=== PATIENT | male | born 1960 | race Caucasian/White ===

== ENCOUNTER 2019-04-23 20:09 | Emergency (ER) | payer SELFPAY ==
[2019-04-23 20:41] LABS: ABSOLUTE NEUTROPHIL COUNT 3.42; BASO % 0.7 % (0-6); EOS % 1.5 % (0-6); GRAN % 63.5 % (47-80); HEMOGLOBIN 15.8 gm/dl (14.0-18.0); LYMPH % 26.7 % (16-45); MEAN CELL VOLUME 82.1 fl (81-97); MEAN CORPUSCULAR HEMOGLOBIN 30.2 pg (27-33); MEAN CORPUSCULAR HGB CONC 36.7 g/dl (32-36); MEAN PLATELET VOLUME 11.3 fl (7.4-10.4); MONO % 7.6 % (0-9); PLATELET COUNT 178 K/uL (130-400); RED BLOOD COUNT 5.24 M/uL (4.40-5.70); RED CELL DISTRIBUTION WIDTH 12.9 % (11.5-14.5); WHITE BLOOD COUNT W/O DIFF 5.4 K/uL (4.2-12.2)
[2019-04-23 20:52] LABS: BLOOD UREA NITROGEN 10 mg/dL (6-20); CREATININE 0.6 mg/dL (0.7-1.2); EST GLOMERULAR FILTRATION RATE > 60 mL/min
[2019-04-23 20:53] LABS: LIPASE 65 U/L (13-60)
[2019-04-23] MEDS ORDERED: 0.9 % SODIUM CHLORIDE 1,000 ML BAG IV ONE (20:53)
--- NOTE | 2019-04-23 20:53 | Emergency Department Record ---
History of Present Illness - General Chief Complaint: Hypertension Stated Complaint: ELEVATED BLOOD PRESSURE,SWELLING LT SIDE PAIN Time Seen by Provider: 04/23/19 20:26 Source: Patient, Family Mode of Arrival: Ambulatory Limitations: No limitations - History of Present Illness Initial Comments: 59 yo male presents after several years since he saw a PCP. He has several concerns today. He is a diabetic and has a history of hepatitis C. He does not check his blood sugars with any frequency. He states he was treated for hepatitis C. He reports several concerns for several months. He has had a left sided left upper quadrant pain for several months. The pain radiates up and down. The pain is constant. He states the skin over the area is very sensitive. He states it feels like having a constant sunburn. There has not been in rash in the area of the pain. He has chronic pain in both the feet as well that is worsening but long standing. He states he has neuropathy. He was told he had an enlarged spleen several years ago by his GI doctor at the time. In January he did have a fall hitting his head and the back of his shoulder. He had an LOC. He has not had any symptoms since then such as headache, dizziness, nausea, off balance. He does have an appointment next week with a new PCP. MD Complaint: Other Onset/Timin -: Month(s) Timing: Unsure History of Trauma: Yes (January 2019) Improves With: Other Worsens With: Nothing Associated Symptoms: Chest pain - Related Data Home Medications Medication Instructions Recorded Confirmed Last Taken Insulin Glargine,Hum.[email or web address].anlog See Protocol SC ASDIR 04/23/19 04/23/19 Unknown [Lantus] Allergies Allergy/AdvReac Type Severity Reaction Status Date / Time No Known Drug Allergies Allergy Verified 04/23/19 21:05 Travel Screening - Travel/Exposure Within Last 30 Days Have you traveled within the last 30 days?: No - Travel/Exposure Within Last Year Have you traveled outside the [place] in the last year?: No - Additonal Travel Details Have you been exposed to anyone with a communicable illness?: No - Travel Symptoms Symptom Screening: Joint & Muscle Aches Review of Systems Constitutional: Denies: Chills, Fever, Malaise, Night sweats, Weakness Eyes: Denies: Eye discharge, Eye pain, Photophobia, Vision change ENT: Denies: Congestion, Throat pain Respiratory: Denies: Cough, Dyspnea, Hemoptysis, Stridor, Wheezes Cardiovascular: Denies: Chest pain, Edema, Palpitations, Syncope Endocrine: Denies: Fatigue, Polydipsia, Polyuria Gastrointestinal: Reports: Abdominal pain. Denies: Constipation, Diarrhea, Hematemesis, Hematochezia, Melena, Nausea, Vomiting Genitourinary: Denies: Dysuria, Frequency, Hematuria Musculoskeletal: Reports: Arthralgia, Back pain, Myalgia. Denies: Neck pain Skin: Denies: Bruising, Change in color, Rash Neurological: Reports: Tingling (both feet, chronic). Denies: Headache, Numbness, Tremors, Vertigo, Weakness Psychiatric: Denies: Anxiety Hematological/Lymphatic: Denies: Easy bleeding, Easy bruising Past Medical History - SOCIAL HISTORY Smoking Status: Never smoker Alcohol Use: Occasional Drug Use: None - RESPIRATORY Hx Respiratory Disorders: Yes Hx Pneumonia: Yes - CARDIOVASCULAR Hx Hypertension: Yes - NEURO Hx Neuropathy: Yes - GI Hx GI Disorders: Yes Hx Liver Disease: Yes (liver cancer) Comment:: hep c - ENDOCRINE Hx Diabetes: Yes - MUSCULOSKELETAL Hx Arthritis: Yes - HEMATOLOGY/ONCOLOGY Hx Cancer: Yes Hx Chemotherapy: Yes Family Medical History Any Significant Family History?: No Physical Exam - General General Appearance: Alert, Oriented x3, Cooperative, No acute distress Limitations: No limitations - Head Head exam: Atraumatic, Normocephalic, Normal inspection - Eye Eye exam: Normal appearance, PERRL. negative: Conjunctival injection, Scleral icterus (clear white sclera) Pupils: negative: Unequal - ENT ENT exam: Normal exam, Mucous membranes moist, Normal orophraynx. negative: Mucous membranes dry Ear exam: Normal external inspection Nasal Exam: Normal inspection Mouth exam: Normal external inspection Teeth exam: Normal inspection Throat exam: Normal inspection - Neck Neck exam: Normal inspection. negative: Lymphadenopathy - Respiratory Respiratory exam: Normal lung sounds bilaterally. negative: Accessory muscle use, Chest wall tenderness, Decreased breath sounds, Prolonged expiratory, Respiratory distress, Rhonchi, Stridor, Wheezes - Cardiovascular Cardiovascular Exam: Regular rate, Normal rhythm, Normal heart sounds Peripheral Pulses: 2+: Radial (R), Radial (L) - GI/Abdominal GI/Abdominal exam: Soft, Tenderness (tender left upper quadrant, no palpable spleen or liver edge, soft otherwise). negative: Guarding, Hypoactive bowel sounds - Rectal Rectal exam: Deferred - exam: Deferred - Extremities Extremities exam: Normal inspection, Full ROM, Normal capillary refill. negative: Calf tenderness, Pedal edema, Tenderness - Back Back exam: Reports: CVA tenderness (L), Full ROM, Tenderness (left side). Denies: CVA tenderness (R) - Neurological Neurological exam: Alert, Normal gait, Oriented X3 - Psychiatric Psychiatric exam: Normal affect, Normal mood. negative: Agitated, Anxious - Skin Skin exam: Dry, Intact, Normal color, Warm, Other (Feet are warm, intact pulses, no skin breakdown). negative: Cyanosis, Diaphoretic, Erythema, Mottled Course Vital Signs 04/23/19 20:17 Temperature 97.8 F Pulse Rate [ 112 H Pulse Ox Probe] Respiratory 20 Rate Blood Pressure 130/92 [Left Arm] Pulse Ox 95 - Reevaluation(s) Reevaluation #1: 04/23/19 22:09 The labs were reviewed The CBC is normal The CMP was normal except for the glucose is elevated at 498 The HCO3 is normal. The AG is normal as well. Normal renal function. 04/23/19 22:14 The Venous pH is 7.37 (normal) The Acetone is negative (normal) The A1C is 11.[address] of the abdomen and pelvis was reviewed. The liver appears enlarged and lobulated possibly consistent with cirrhosis, the spleen is borderline to mildly enlarged, no ascites, inguinal hernias noted. 04/23/19 22:41 We discussed the lab results at length. We discussed the need to have the close follow up with his new PCP and half-way monitoring of the glucose. No current signs of DKA or other complications. His liver seems stable with normal LFT's. 04/23/19 22:43 Repeat glucose is 311. 04/23/19 He has enough Lantus until next week but an Rx was provided He will fill the Rx for strips so he can start titrating his lantus up as well He will increase to 40 units from 30 Medical Decision Making - Lab Data Result diagrams: 04/23/19 20:31 04/23/19 20:31 Lab Results 04/23/19 Range/Units 20:31 WBC 5.4 (4.2-12.2) K/uL RBC 5.24 (4.40-5.70) M/uL Hgb 15.8 (14.0-18.0) gm/dl Hct 43.0 (42.0-52.0) % MCV 82.1 (81-97) fl MCH 30.2 (27-33) pg MCHC 36.7 H (32-36) g/dl RDW 12.9 (11.5-14.5) % Plt Count 178 (130-400) K/uL MPV 11.3 H (7.4-10.4) fl Gran % 63.5 (47-80) % Lymphocytes % 26.7 (16-45) % Monocytes % 7.6 (0-9) % Eosinophils % 1.5 (0-6) % Basophils % 0.7 (0-6) % Absolute Neutrophils 3.42 Disposition Disposition: Discharge Clinical Impression: Hyperglycemia, Neuropathy Disposition: Home, Self-Care Condition: (1) Good Instructions: Diabetic Hyperglycemia (ED) Additional Instructions: Follow up as scheduled with your new doctor for your first appointment Review this ER visit and the tests performed with your family doctor Return to the ER for a recheck if worse, any new concerns or questions Take the prescriptions provided as directed Forms: Patient Portal Access Time of Disposition: 23:07 Quality - Quality Measures Quality Measures: N/A - Blood Pressure Screening Does Patient Have Any of the Following: No Blood Pressure Classification: Hypertensive Reading Systolic Measurement: 118 Diastolic Measurement: 95 Screening for High Blood Pressure: < Pre-Hypertensive BP, F/U Documented > [G8950] Pre-Hypertensive Follow-up Interventions: Referral to alternative/primary care provider.
[2019-04-23 20:58] LABS: ALBUMIN 4.7 g/dL (4.0-5.0); ALKALINE PHOSPHATASE 60 U/L (40-129); ALT/SGPT 31 U/L (<41); AST/SGOT 22 U/L (10.0-50.0)
[2019-04-23 21:08] LABS: GLUCOSE,RANDOM 489 mg/dL (74-109)
[2019-04-23] MEDS ORDERED: 0.9 % SODIUM CHLORIDE 1000ML 1,000 ML IV ONE ×2 (21:08→22:16)
[2019-04-23] MEDS ORDERED: HUMULIN R 100 UNIT/ML VIAL SQ ONE (21:29)
[2019-04-23 21:31] LABS: URINE APPEARANCE CLEAR; URINE BILIRUBIN NEGATIVE (NEGATIVE); URINE BLOOD NEGATIVE (NEGATIVE); URINE COLOR YELLOW; URINE KETONE NEGATIVE (NEGATIVE); URINE LEUKOCYTE ESTERASE NEGATIVE (NEGATIVE); URINE NITRITE NEGATIVE (NEGATIVE); URINE PROTEIN NEGATIVE (NEGATIVE); URINE UROBILINOGEN 0.2 E.U./dL (0.20 - 1.00)
[2019-04-23 21:33] LABS: URINE GLUCOSE (UA) >=1000 mg/dL (NEGATIVE)
[2019-04-23 21:34] LABS: ACETONE,SERUM NEGATIVE (NEGATIVE)
--- NOTE | 2019-04-25 09:33 | CT SCAN REPORT ---
EXAM: CT OF THE ABDOMEN AND PELVIS HISTORY: FELL DOWN STAIRS, GENERALIZED PAIN. TECHNIQUE: CT of the abdomen and pelvis was performed following intravenous contrast administration. Comparison: None. FINDINGS: The lung bases are unremarkable. The liver has a diffusely lobulated appearance. The spleen is borderline enlarged. Findings suggest cirrhosis. No focal hepatic mass identified. No pancreatic mass or inflammatory change. The bile ducts are not dilated. There are no calcified gallstones. No adrenal mass. There is bilateral renal function with no renal mass or hydronephrosis. There is no aortic aneurysm. No periaortic mass or adenopathy identified. There are no dilated bowel loops. There is no pelvic mass, abscess or adenopathy. No free air or free fluid identified. There are bilateral fat containing inguinal hernias. Arthritic changes are present in the sacroiliac joints and lower lumbar spine. IMPRESSION: 1. THE LIVER HAS A DIFFUSELY LOBULATED APPEARANCE. THIS PATTERN SUGGESTS CIRRHOSIS. PLEASE CORRELATE CLINICALLY. THE SPLEEN IS BORDERLINE TO MILDLY ENLARGED. 2. BILATERAL FAT CONTAINING INGUINAL HERNIA. 3. NO ACUTE ABDOMINAL OR PELVIC PROCESS IDENTIFIED. JOB NUMBER: [id number] [facility]
== END 2019-04-23 23:25 | disposition home or self-care (01) ==
LOC: ER 20:09
DX: E11.65 Type 2 diabetes mellitus with hyperglycemia (principal); E11.40 Type 2 diabetes mellitus with diabetic neuropathy, unspecified; R10.12 Left upper quadrant pain; R07.9 Chest pain, unspecified; I10 Essential (primary) hypertension; Z79.4 Long term (current) use of insulin; Z86.19 Personal history of other infectious and parasitic diseases
CPT/HCPCS: 99284 ×2; 96372; 82800; 83690; 85025; 80053; 36416; 82009; 83036; 82948; 81003; 74177; Q9967; J7030

== ENCOUNTER 2019-06-08 09:39 | Observation (INO) | payer MEDICAID ==
[2019-06-08] MEDS ORDERED: ACETAMINOPHEN 1,000 MG/100 ML BTL IVPB ONE (10:07)
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
[2019-06-08 10:20] LABS: ABSOLUTE NEUTROPHIL COUNT 3.37; BASO % 0.4 % (0-6); EOS % 1.8 % (0-6); GRAN % 66.2 % (47-80); HEMATOCRIT 41.9 % (42.0-52.0); HEMOGLOBIN 14.5 gm/dl (14.0-18.0); LYMPH % 21.6 % (16-45); MEAN CELL VOLUME 86.2 fl (81-97); MEAN CORPUSCULAR HEMOGLOBIN 29.8 pg (27-33); MEAN CORPUSCULAR HGB CONC 34.6 g/dl (32-36); MEAN PLATELET VOLUME 11.5 fl (7.4-10.4); PLATELET COUNT 158 K/uL (130-400); RED BLOOD COUNT 4.86 M/uL (4.40-5.70); RED CELL DISTRIBUTION WIDTH 13.4 % (11.5-14.5); URINE APPEARANCE CLEAR; URINE BILIRUBIN NEGATIVE (NEGATIVE); URINE BLOOD NEGATIVE (NEGATIVE); URINE COLOR YELLOW; URINE GLUCOSE (UA) NEGATIVE (NEGATIVE); URINE KETONE NEGATIVE (NEGATIVE); URINE LEUKOCYTE ESTERASE NEGATIVE (NEGATIVE); URINE NITRITE POSITIVE (NEGATIVE); URINE PROTEIN NEGATIVE (NEGATIVE); WHITE BLOOD COUNT W/O DIFF 5.1 K/uL (4.2-12.2)
[2019-06-08 10:29] LABS: BLOOD UREA NITROGEN 13 mg/dL (6-20); CREATININE 0.6 mg/dL (0.7-1.2); EST GLOMERULAR FILTRATION RATE > 60 mL/min
[2019-06-08 10:31] LABS: PARTIAL THROMBOPLASTIN TIME 28.5 SECONDS (24.5-39.1); PROTHROMBIN TIME (PATIENT) 10.7 SECONDS (9.5-12.1)
[2019-06-08 10:32] LABS: GLUCOSE,RANDOM 151 mg/dL (74-109)
[2019-06-08 10:34] LABS: ALBUMIN 4.4 g/dL (4.0-5.0); ALKALINE PHOSPHATASE 46 U/L (40-129); ALT/SGPT 17 U/L (<41); AST/SGOT 25 U/L (10.0-50.0)
[2019-06-08 10:35] LABS: BILIRUBIN,DIRECT < 0.2 mg/dL (0-0.3); C-REACTIVE PROTEIN 0.07 mg/dL (<0.5)
[2019-06-08 10:44] LABS: URINE BACTERIA NONE SEEN; URINE EPITHELIAL CELLS 0 - 2 (FEW); URINE RBC NONE SEEN (NONE SEEN); URINE WBC NONE SEEN (0-2/hpf)
--- NOTE | 2019-06-08 10:55 | RADIOLOGY REPORT ---
EXAMINATION: Two View Chest Radiographs EXAM DATE: 06/08/2019 10:30 AM TECHNIQUE: Frontal and lateral views INDICATION: R upper back rib pain COMPARISON: None ENCOUNTER: Not applicable FINDINGS: Cardiac size is normal. Bibasilar atelectasis or infiltrates and small pleural effusions. IMPRESSION: Bibasilar atelectasis or infiltrates and small pleural effusions. Dictated by: Razia Quinonez MD on 06/08/2019 10:49 AM. .
[2019-06-08] MEDS ORDERED: KETOROLAC 30 MG/ML VIAL IVP ONE (11:01)
[2019-06-08] MEDS ORDERED: FUROSEMIDE IV 40MG/4ML VIAL IVP ONE (11:33)
[2019-06-08] MEDS ORDERED: ONDANSETRON HCL IV 4 MG/2 ML VIAL IVP ONE (11:36)
[2019-06-08] MEDS ORDERED: HYDROMORPHONE HCL 2 MG/ML VIAL IVP ONE (11:36)
--- NOTE | 2019-06-08 12:27 | History & Physical ---
History of Present Illness - Date of Service Date of Service for History & Physical: 06/09/19 - History of Present Illness History of Present Illness: Mr. Sandoval is a 59 y/o male with history of diabetes II who presents with bilateral lower extremity swelling and pain since February of this year. As per ED report the patient has been using Lyrica as prescribed by his primary doctor and icing his legs to helps with pain control. He denies chest pain, shortness of breath, or palpitations. He has no history of DC however EKG today shows LBBB and chest xray notes bilateral atelectasis and small pleural effusions. He does have a history of chronic hepatitis C which was treated about 6 years ago and he says that his last viral load 4 years ago was low. The patient will be admitted to the general medical floor to be diuresed for lower ext swelling and 2D echo. PCP: Dr. Eric Snell Travel Screening - Travel/Exposure Within Last 30 Days Have you traveled within the last 30 days?: No Review of Systems Constitutional: Denies: Chills, Fever Eyes: Denies: Eye discharge ENT: Denies: Congestion Respiratory: Denies: Cough, Dyspnea Cardiovascular: Denies: Chest pain Endocrine: Reports: Fatigue Gastrointestinal: Denies: Nausea Genitourinary: Denies: Dysuria, Hematuria Musculoskeletal: Reports: Arthralgia Skin: Reports: Change in color. Denies: Bruising Neurological: Denies: Abnormal gait Past Medical History - SOCIAL HISTORY Smoking Status: Never smoker Alcohol Use: None Drug Use: None - RESPIRATORY Hx Respiratory Disorders: Yes Hx Pneumonia: Yes - CARDIOVASCULAR Hx Cardio Disorders: Yes Hx Hypertension: Yes - NEURO Hx Neuro Disorders: Yes Hx Neuropathy: Yes - GI Hx GI Disorders: Yes Hx Liver Disease: Yes (liver cancer) Comment:: hep c - Hx Genitourinary Disorders: No - ENDOCRINE Hx Endocrine Disorders: Yes Hx Diabetes: Yes - MUSCULOSKELETAL Hx Musculoskeletal Disorders: Yes Hx Arthritis: Yes Hx Back Injury: Yes - PSYCH Hx Psych Problems: No - HEMATOLOGY/ONCOLOGY Hx Hematology/Oncology Disorders: Yes Hx Cancer: Yes Hx Chemotherapy: Yes Family Medical History Any Significant Family History?: No H&P Meds/Allergies - Allergies Allergies: Allergies Allergy/AdvReac Type Severity Reaction Status Date / Time No Known Drug Allergies Allergy Verified 06/08/19 09:49 - Home Medications Home Medications Medication Instructions Recorded Confirmed Last Taken Metformin HCl 500 mg PO BID 06/08/19 06/08/19 Unknown Pioglitazone HCl 30 mg PO DAILY 06/08/19 06/08/19 Unknown Pregabalin 100 mg PO TID 06/08/19 06/08/19 Unknown Trazodone HCl 50 mg PO QHS 06/08/19 06/08/19 Unknown Physical Exam - Vital Signs Vital Signs: Vital Signs - Last 24 Hrs Temp Pulse Pulse Resp BP BP BP 06/08/19 11:42 107 H 18 137/93 06/08/19 10:28 108 H 18 131/88 06/08/19 09:42 97.8 F 121 H 18 146/108 Pulse Ox 06/08/19 11:42 97 06/08/19 10:28 98 06/08/19 09:42 98 - General General Appearance: Alert, Oriented x3, Cooperative, No acute distress Limitations: No limitations - Head Head exam: Atraumatic, Normocephalic - Eye Eye exam: Normal appearance, PERRL - ENT Throat exam: Normal inspection. negative: Tonsillar erythema, Tonsillar exudate - Neck Neck exam: Normal inspection, Full ROM. negative: Tenderness - Respiratory Respiratory exam: Normal lung sounds bilaterally. negative: Respiratory distress - Cardiovascular Cardiovascular Exam: Regular rate, Normal rhythm, Normal heart sounds, Tachycardia Peripheral Pulses: 2+: Dorsalis Pedis (R), Dorsalis Pedis (L), 3+: Radial (R), Radial (L) - GI/Abdominal GI/Abdominal exam: Soft, Normal bowel sounds, Distended. negative: Tenderness - Extremities Extremities exam: Normal capillary refill, Pedal edema (trace bilaterally. ), Tenderness (The lower legs at the ankles and feet are very tender to palpation with mild edema. There are decreased DP and PT pulses but the feet are VERY cold due to the patient icing them due to the pain.), Other (After warming the feet up the R DP pulse was 1+ and the L trace. I cannot feel the PT pulses.). negative: Normal inspection, Full ROM - Neurological Neurological exam: Alert, Normal gait. negative: Abnormal gait, Motor sensory deficit Results - Labs Result Diagrams: 06/08/19 10:05 06/09/19 07:18 Labs Last 24 Hours: Laboratory Results - last 24 hr 06/08/19 06/08/19 06/08/19 10:05 10:05 10:05 WBC 5.1 RBC 4.86 Hgb 14.5 Hct 41.9 L MCV 86.2 MCH 29.8 MCHC 34.6 RDW 13.4 Plt Count 158 MPV 11.5 H Gran % 66.2 Lymphocytes % 21.6 Monocytes % 10.0 H Eosinophils % 1.8 Basophils % 0.4 Absolute Neutrophils 3.37 PT 10.7 INR 1.0 APTT 28.5 Sodium Potassium Chloride Carbon Dioxide Anion Gap BUN Creatinine Estimated GFR Random Glucose Calcium Total Bilirubin Direct Bilirubin AST ALT Alkaline Phosphatase Troponin T C-Reactive Protein NT-Pro-B Natriuret Pep Total Protein Albumin TSH Urine Color Yellow Urine Appearance Clear Urine pH 6.0 Ur Specific Hamilton 1.025 Urine Protein Negative Urine Glucose (UA) Negative Urine Ketones Negative Urine Blood Negative Urine Nitrite Positive H Urine Bilirubin Negative Urine Urobilinogen 1.0 Ur Leukocyte Esterase Negative Urine RBC None seen Urine WBC None seen Ur Epithelial Cells 0 - 2 Urine Bacteria None seen 06/08/19 06/08/19 06/08/19 10:05 10:05 10:05 WBC RBC Hgb Hct MCV MCH MCHC RDW Plt Count MPV Gran % Lymphocytes % Monocytes % Eosinophils % Basophils % Absolute Neutrophils PT INR APTT Sodium 138 Potassium 4.3 Chloride 100 Carbon Dioxide 27.0 Anion Gap 11.0 BUN 13 Creatinine 0.6 L Estimated GFR > 60 Random Glucose 151 H Calcium 9.4 Total Bilirubin 0.60 Direct Bilirubin < 0.2 AST 25 ALT 17 Alkaline Phosphatase 46 Troponin T < 0.010 C-Reactive Protein 0.07 NT-Pro-B Natriuret Pep 863.80 H Total Protein 7.0 Albumin 4.4 TSH 3.12 Urine Color Urine Appearance Urine pH Ur Specific Hamilton Urine Protein Urine Glucose (UA) Urine Ketones Urine Blood Urine Nitrite Urine Bilirubin Urine Urobilinogen Ur Leukocyte Esterase Urine RBC Urine WBC Ur Epithelial Cells Urine Bacteria VTE H&P Assessment - Risk for VTE Risk for VTE: Yes Risk Level: Moderate Risk Assessment Date: 06/09/19 Risk Assessment Time: 10:58 VTE Orders Placed or Will Be Placed: Yes Plan - Detailed Diagnosis and Plan (1) Bilateral leg pain Current Visit: Yes Status: Acute Base Code: M79.604 - PAIN IN RIGHT LEG; M79.605 - PAIN IN LEFT LEG Comment: 06/08/19: - Possibly 2/2 to neuropathic pain, edema or PVD. - Resume Lyrica 100mg TID, Dilaudid 1mg Q4H PRN, Lasix 40mg IVP QD. Change to Tramadol 100mg TID. - Elevate legs, doppler studies may be needed outpatient. (2) Bilateral lower extremity edema Current Visit: Yes Status: Acute Base Code: R60.0 - LOCALIZED EDEMA Comment: 06/08/19: - New onset bilateral lower ext edema, CXR showing atelectasis and bilateral pleural effusions. - Diurese qith Lasix 40mg QD IVP, elevate legs and compression hoses. - Check 2D echo in the morning and Cardiology consult pending findings. - Hold Actos pending echo. (3) Type 2 diabetes, uncontrolled, with neuropathy Current Visit: Yes Status: Acute Base Code: E11.40 - TYPE 2 DIABETES MELLITUS WITH DIABETIC NEUROPATHY, UNSP; E11.65 - TYPE 2 DIABETES MELLITUS WITH HYPERGLYCEMIA Comment: 06/08/19: - Resume basal insulin dose QHS, Metformin 500mg BID and Actos 30mg daily. - Hold Actos pending 2D echo to determine cardiac function as this medication has been shown to increase the risk of heart failure. - Accuchecks AcHs and ADA diet (4) History of hepatitis C Current Visit: Yes Status: Acute Base Code: Z86.19 - PERSONAL HISTORY OF OTHER INFECTIOUS AND PARASITIC DISEASES Comment: 06/08/19: - Last viral load 4 years ago. - Check hepatitis panel. (5) DVT prophylaxis Current Visit: Yes Status: Acute Base Code: Z29.9 - ENCOUNTER FOR PROPHYLACTIC MEASURES, UNSPECIFIED Comment: 06/08/19: - High risk due to decrease ambulation. - Lovenox 40mg sq qhs (6) Full code status Current Visit: Yes Status: Acute Base Code: Z78.9 - OTHER SPECIFIED HEALTH STATUS Comment: 06/08/19: - The patient is full code status.
[2019-06-08] MEDS ORDERED: ACETAMINOPHEN 500 MG TABLET PO PRN (12:57)
[2019-06-08] MEDS ORDERED: ONDANSETRON HCL IV 4 MG/2 ML VIAL IVP PRN (12:57)
[2019-06-08] MEDS ORDERED: INSULIN GLARGINE HUM REC ANLOG SC SCH (12:57)
[2019-06-08] MEDS ORDERED: HYDROMORPHONE HCL 2 MG/ML VIAL IVP PRN (12:57)
[2019-06-08] MEDS: ASPIRIN 325 MG TAB ENTERIC-COATED PO SCH (13:50)
[2019-06-08] MEDS: ENOXAPARIN 40 MG/0.4 ML SYR SQ SCH (13:50)
[2019-06-08] MEDS: TRAMADOL HCL 50 MG TABLET PO PRN ×2 (14:11→19:54)
[2019-06-08] MEDS: PREGABALIN (LYRICA) 100MG CAPSULE PO SCH ×2 (16:19→23:48)
[2019-06-08] MEDS: METFORMIN 500 MG TABLET PO SCH (16:47)
[2019-06-08] MEDS ORDERED: LEVEMIR FLEXTOUCH 100 UNIT/ML INSULIN PEN SQ SCH (22:00)
[2019-06-08] MEDS ORDERED: TRAZODONE 50 MG TABLET PO SCH (22:00)
[2019-06-09] MEDS: TRAMADOL HCL 50 MG TABLET PO PRN ×2 (07:27→15:48)
[2019-06-09 07:43] LABS: BLOOD UREA NITROGEN 21 mg/dL (6-20); CREATININE 0.6 mg/dL (0.7-1.2); EST GLOMERULAR FILTRATION RATE > 60 mL/min; GLUCOSE,RANDOM 97 mg/dL (74-109)
[2019-06-09] MEDS: METFORMIN 500 MG TABLET PO SCH (08:09)
[2019-06-09] MEDS: PREGABALIN (LYRICA) 100MG CAPSULE PO SCH ×3 (09:32→15:49)
[2019-06-09] MEDS: ASPIRIN 325 MG TAB ENTERIC-COATED PO SCH (09:32)
[2019-06-09] MEDS: ENOXAPARIN 40 MG/0.4 ML SYR SQ SCH (09:33)
[2019-06-09] MEDS ORDERED: LEVEMIR FLEXTOUCH 100 UNIT/ML INSULIN PEN SQ SCH (10:00)
[2019-06-09] MEDS ORDERED: FUROSEMIDE IV 40MG/4ML VIAL IVP SCH (10:00)
[2019-06-09] MEDS ORDERED: LISINOPRIL 5 MG TABLET PO SCH (14:15)
[2019-06-09 16:41] LABS: HEP A AB IGM Nonreactive (Nonreactive); HEPATITIS B CORE ANTIBODY,IGM Nonreactive (Nonreactive); HEPATITIS B SURFACE ANTIGEN Nonreactive (Nonreactive)
[2019-06-10 11:24] LABS: HEPATITIS C VIRUS ANTIBODY Reactive (Nonreactive)
--- NOTE | 2019-06-11 07:29 | Discharge Summary ---
Providers Discharge Summary Date: 06/11/19 Date of admission: 06/08/19 12:55 Attending physician: ENZO ZAMAN Primary care physician: ERIC RUELAS M.D. Consults: Consult Orders 06/09/19 14:09 Consult - Cardiology NOW Consulting Provider: ENZO ZAMAN Physician Instructions: Reason For Exam: Heart failure Does pt have current director machine?: Not Established Physical Exam - General General Appearance: Alert, Oriented x3, Cooperative, No acute distress Limitations: No limitations - Head Head exam: Atraumatic, Normocephalic - Eye Eye exam: Normal appearance, PERRL - ENT Throat exam: Normal inspection. negative: Tonsillar erythema, Tonsillar exudate - Neck Neck exam: Normal inspection, Full ROM. negative: Tenderness - Respiratory Respiratory exam: Normal lung sounds bilaterally. negative: Respiratory distress - Cardiovascular Cardiovascular Exam: Regular rate, Normal rhythm, Normal heart sounds, Tachycardia Peripheral Pulses: 2+: Dorsalis Pedis (R), Dorsalis Pedis (L), 3+: Radial (R), Radial (L) - GI/Abdominal GI/Abdominal exam: Soft, Normal bowel sounds, Distended. negative: Tenderness - Extremities Extremities exam: Normal capillary refill, Pedal edema (trace bilaterally. ), Tenderness (The lower legs at the ankles and feet are very tender to palpation with mild edema. There are decreased DP and PT pulses but the feet are VERY cold due to the patient icing them due to the pain.), Other (After warming the feet up the R DP pulse was 1+ and the L trace. I cannot feel the PT pulses.). negative: Normal inspection, Full ROM - Neurological Neurological exam: Alert, Normal gait. negative: Abnormal gait, Motor sensory deficit Hospitalization - Hospitalization Admission Diagnosis: 1. Acute CHF - Problem List/Discharge Diagnosis (1) Bilateral leg pain Status: Acute Base Code: M79.604 - PAIN IN RIGHT LEG; M79.605 - PAIN IN LEFT LEG Comment: 06/08/19: - Possibly 2/2 to neuropathic pain, edema or PVD. - Resume Lyrica 100mg TID, Dilaudid 1mg Q4H PRN, Lasix 40mg IVP QD. Change to Tramadol 100mg TID. - Elevate legs, doppler studies may be needed outpatient. (2) Bilateral lower extremity edema Status: Acute Base Code: R60.0 - LOCALIZED EDEMA Comment: 06/08/19: - New onset bilateral lower ext edema, CXR showing atelectasis and bilateral pleural effusions. - Diurese qith Lasix 40mg QD IVP, elevate legs and compression hoses. - Check 2D echo in the morning and Cardiology consult pending findings. - Hold Actos pending echo. (3) Type 2 diabetes, uncontrolled, with neuropathy Status: Acute Base Code: E11.40 - TYPE 2 DIABETES MELLITUS WITH DIABETIC NEUROPATHY, UNSP; E11.65 - TYPE 2 DIABETES MELLITUS WITH HYPERGLYCEMIA Comment: 06/08/19: - Resume basal insulin dose QHS, Metformin 500mg BID and Actos 30mg daily. - Hold Actos pending 2D echo to determine cardiac function as this medication has been shown to increase the risk of heart failure. - Accuchecks AcHs and ADA diet (4) History of hepatitis C Status: Acute Base Code: Z86.19 - PERSONAL HISTORY OF OTHER INFECTIOUS AND PARASITIC DISEASES Comment: 06/08/19: - Last viral load 4 years ago. - Check hepatitis panel. (5) DVT prophylaxis Status: Acute Base Code: Z29.9 - ENCOUNTER FOR PROPHYLACTIC MEASURES, UNSPECIFIED Comment: 06/08/19: - High risk due to decrease ambulation. - Lovenox 40mg sq qhs (6) Full code status Status: Acute Base Code: Z78.9 - OTHER SPECIFIED HEALTH STATUS Comment: 06/08/19: - The patient is full code status. - Hospitalization Course Disposition: Acute Care Hospital Transfer Hospital Course: Mr. Sandoval is a 59 y/o male with history of diabetes II who presents with bilateral lower extremity swelling and pain since February of this year. As per ED report the patient has been using Lyrica as prescribed by his primary doctor and icing his legs to helps with pain control. He denies chest pain, shortness of breath, or palpitations. He has no history of NV however EKG today shows LBBB and chest xray notes bilateral atelectasis and small pleural effusions. He does have a history of chronic hepatitis C which was treated about 6 years ago and he says that his last viral load 4 years ago was low. The patient will be admitted to the general medical floor to be diuresed for lower ext swelling and 2D echo. Echo with EF 20-25%. Cardiology consult placed and patient transferred to [facility] for further Cardiac workup. PCP: Dr. Eric Ruelas Procedures: Imaging and X-Rays 06/08/19 10:01 CHEST 2 VIEWS [RAD] Stat Cardiology Procedures 06/08/19 10:46 EKG NOW 06/08/19 12:57 Specialty Development Consultant .Continuous EKG QDX2@0600 06/09/19 09:29 Echo W/CF & Cardiac Doppler NOW Abnormal Labs: Abnormal Lab Results 06/08/19 06/08/19 06/08/19 Range/Units 10:05 10:05 10:05 Hct 41.9 L (42.0-52.0) % MPV 11.5 H (7.4-10.4) fl Monocytes % 10.0 H (0-9) % BUN (6-20) mg/dL Creatinine 0.6 L (0.7-1.2) mg/dL POC Glucose (70-110) mg/dL Random Glucose 151 H (74-109) mg/dL Hemoglobin A1c (4.0-6.00) % NT-Pro-B Natriuret Pep (<125) pg/mL Urine Nitrite Positive H (NEGATIVE) Hepatitis C Antibody (Nonreactive) 06/08/19 06/08/19 06/09/19 Range/Units 10:05 22:05 07:18 Hct (42.0-52.0) % MPV (7.4-10.4) fl Monocytes % (0-9) % BUN 21 H (6-20) mg/dL Creatinine 0.6 L (0.7-1.2) mg/dL POC Glucose 122 H (70-110) mg/dL Random Glucose (74-109) mg/dL Hemoglobin A1c (4.0-6.00) % NT-Pro-B Natriuret Pep 863.80 H (<125) pg/mL Urine Nitrite (NEGATIVE) Hepatitis C Antibody (Nonreactive) 06/09/19 06/09/19 06/09/19 Range/Units 07:18 07:18 11:30 Hct (42.0-52.0) % MPV (7.4-10.4) fl Monocytes % (0-9) % BUN (6-20) mg/dL Creatinine (0.7-1.2) mg/dL POC Glucose 151 H (70-110) mg/dL Random Glucose (74-109) mg/dL Hemoglobin A1c 7.50 H (4.0-6.00) % NT-Pro-B Natriuret Pep (<125) pg/mL Urine Nitrite (NEGATIVE) Hepatitis C Antibody Reactive H (Nonreactive) 06/09/19 Range/Units 17:00 Hct (42.0-52.0) % MPV (7.4-10.4) fl Monocytes % (0-9) % BUN (6-20) mg/dL Creatinine (0.7-1.2) mg/dL POC Glucose 181 H (70-110) mg/dL Random Glucose (74-109) mg/dL Hemoglobin A1c (4.0-6.00) % NT-Pro-B Natriuret Pep (<125) pg/mL Urine Nitrite (NEGATIVE) Hepatitis C Antibody (Nonreactive) Condition at Discharge: (2) Stable Discharge Medications - Discharge Medications Home Medications: Ambulatory Orders Insulin Glargine,Hum.rec.anlog [Lantus] See Protocol SC ASDIR 04/23/19 [Last Taken Unknown] Metformin HCl 500 mg PO BID 06/08/19 [Last Taken Unknown] Pioglitazone HCl 30 mg PO DAILY 06/08/19 [Last Taken Unknown] Pregabalin 100 mg PO TID 06/08/19 [Last Taken Unknown] Trazodone HCl 50 mg PO QHS 06/08/19 [Last Taken Unknown] Discharge Plan - Discharge Instructions Activity at Discharge: Increase Activity as Tolerated Diet at Discharge: Low Fat, Low Cholesterol, Low Salt Diet Additional Instructions: Appointment with Dr. Ruelas June 10 at 9:00am. Quality Measures - Quality Measures Quality Measures: Documentation of Current Medications in Medical Record, Heart Failure, Screening for High Blood Pressure and F/U Documented - Current Medications Quality Measure: Measure #130: Documentation of Current Medications Documentation of Current Medications: <Current Medications Documented/Reviewed> [G8427] - Blood Pressure Screening Quality Measure: Screening for High Blood Pressure and Follow-Up Documented Does Patient Have Any of the Following: Active Dx of HTN Blood Pressure Classification: Hypertensive Reading Systolic Measurement: 146 Diastolic Measurement: 108 Screening for High Blood Pressure: Patient Exclusion, Hx of HTN [G9744] - Heart Failure (KALEN/ARB Therapy) Quality Measure: Heart Failure Left Ventricular Systolic Function: LV Ejection Fraction less than 40% [3021F] KALEN Inhibitor or ARB Therapy for LVSD: <KALEN Inhibitor or ARB therapy prescribed or currently taken> [4010F] - Heart Failure (Beta-laura Therapy) Quality Measure: Heart Failure Left Ventricular Systolic Function: LV Ejection Fraction less than 40% [3021F] Beta-Laura Therapy for LVEF < 40%: <Beta-Laura Therapy Prescribed> [G8450] Reason for NOT Prescribing: Fluid Overload - Elder Abuse Suspicion Index EASI Reference Information: Ino RAYGOZA, Hayden C, Evelio Webster, Terry Ly.Development and validation of a tool to assist physicians identification of elder abuse: The Elder Abuse Suspicion Index (EASI ). Journal of Elder Abuse and Neglect, 2008; 20 (3): 276-300.
== END 2019-06-09 17:50 | disposition short-term general hospital (02) ==
LOC: ER 09:39 → MEDSURG 12:55
PROVIDERS: ADMIT Internal Medicine; ATTEND Internal Medicine
DX: I50.9 Heart failure, unspecified (principal); R60.0 Localized edema; M79.604 Pain in right leg; M79.605 Pain in left leg; E11.40 Type 2 diabetes mellitus with diabetic neuropathy, unspecified; B19.20 Unspecified viral hepatitis C without hepatic coma; I10 Essential (primary) hypertension; I44.7 Left bundle-branch block, unspecified; Z85.05 Personal history of malignant neoplasm of liver; M19.90 Unspecified osteoarthritis, unspecified site
CPT/HCPCS: 36416; 71046; 80048; 80076; 81001; 82948; 83036; 83880; 84443; 84484; 85025; 85610; 85730; 86140; 86705; 86803; 87340; 93005; 93010; 93306; 96365; 96375; 99217; 99220; 99285; J1650; J1885; J1940; J2405

== ENCOUNTER 2019-06-17 17:29 | Emergency (ER) | payer MEDICAID ==
[2019-06-17] MEDS ORDERED: 0.9 % SODIUM CHLORIDE 1,000 ML BAG IV ONE (17:54)
[2019-06-17] MEDS ORDERED: ONDANSETRON HCL IV 4 MG/2 ML VIAL IV ONE (17:54)
--- NOTE | 2019-06-17 18:04 | Emergency Department Record ---
History of Present Illness - General Chief complaint: Weakness Stated complaint: NO ABLE TO EAT/DRINK,FEET PAIN Time Seen by Provider: 06/17/19 17:47 Source: Patient Mode of Arrival: Ambulatory Limitations: No limitations - History of Present Illness Initial comments: pt has been vomiting all day. he has had no appetite since yesterday. his bs was 160. he has no c/d. he was recently hospitalized here and then transferred to [facility]. he had a heart catherization that showed normal coronary arteries but only 20-25% ejection fraction. he had a banana to eat last night. MD Complaint: Generalized weakness Onset/Timin -: Days(s) Location: Generalized Severity: Mild Consistency: Constant Improves with: None Worsens with: None Associated Symptoms: Nausea/vomiting - [place] Coma Scale Eye Response: (4) Open spontaneously Motor Response: (6) Obeys commands Verbal Response: (5) Oriented [place] Total: 15 - Related Data Home Medications Medication Instructions Recorded Confirmed Last Taken Aspirin Chewable 81 mg PO DAILY 06/17/19 06/17/19 06/17/19 Atorvastatin Calcium [Lipitor] 10 mg PO QHS 06/17/19 06/17/19 Unknown Carvedilol [Coreg] 3.125 mg PO BID 06/17/19 06/17/19 06/17/19 Furosemide [Lasix] 20 mg PO BID 06/17/19 06/17/19 06/17/19 Gabapentin [Neurontin] 100 mg PO TID 06/17/19 06/17/19 06/17/19 Lisinopril [Prinivil] 5 mg PO DAILY 06/17/19 06/17/19 06/17/19 Tramadol HCl 1 tab PO Q6H PRN 06/17/19 06/17/19 06/16/19 Previous Rx's Medication Instructions Recorded Promethazine HCl [Phenergan] 12.5 mg PO Q8HR #10 tablet 06/17/19 Allergies Allergy/AdvReac Type Severity Reaction Status Date / Time No Known Drug Allergies Allergy Verified 06/17/19 17:41 Travel Screening - Travel/Exposure Within Last 30 Days Have you traveled within the last 30 days?: No Review of Systems Reviewed: No additional complaints except as noted below Constitutional: Reports: As per HPI. Denies: Chills, Fever, Malaise, Night sweats, Weakness, Weight change Eyes: Reports: As per HPI. Denies: Eye discharge, Eye pain, Photophobia, Vision change ENT: Reports: As per HPI. Denies: Congestion, Dental pain, Ear pain, Epistaxis, Hearing loss, Throat pain Respiratory: Reports: As per HPI. Denies: Cough, Dyspnea, Hemoptysis, Stridor, Wheezes Cardiovascular: Reports: As per HPI. Denies: Arrhythmia, Chest pain, Dyspnea on exertion, Edema, Murmurs, Orthopnea, Palpitations, Paroxysmal nocturnal dyspnea, Rheumatic Fever, Syncope Endocrine: Reports: As per HPI. Denies: Fatigue, Heat or cold intolerance, Polydipsia, Polyuria Gastrointestinal: Reports: As per HPI, Abdominal pain, Nausea, Vomiting. D enies: Constipation, Diarrhea, Hematemesis, Hematochezia, Melena Genitourinary: Reports: As per HPI. Denies: Dysuria, Frequency, Hematuria, Incontinence, Retention, Testicular pain, Testicular mass, Urgency Musculoskeletal: Reports: As per HPI. Denies: Arthralgia, Back pain, Gout, Joint swelling, Myalgia, Neck pain Skin: Reports: As per HPI. Denies: Bruising, Change in color, Change in hair/nails, Lesions, Pruritus, Rash Neurological: Reports: As per HPI. Denies: Abnormal gait, Confusion, Headache, Numbness, Paresthesias, Seizure, Tingling, Tremors, Vertigo, Weakness Psychiatric: Reports: As per HPI. Denies: Anxiety, Auditory hallucinations, Depression, Homicidal thoughts, Suicidal thoughts, Visual hallucinations Hematological/Lymphatic: Reports: As per HPI. Denies: Anemia, Blood Clots, Easy bleeding, Easy bruising, Swollen glands Past Medical History - SOCIAL HISTORY Smoking Status: Never smoker Alcohol Use: None Drug Use: None - RESPIRATORY Hx Respiratory Disorders: Yes Hx Pneumonia: Yes - CARDIOVASCULAR Hx Cardio Disorders: Yes Hx Hypertension: Yes Comment:: heart cath 06/2019 - NEURO Hx Neuro Disorders: Yes Hx Neuropathy: Yes - GI Hx GI Disorders: Yes Hx Liver Disease: Yes (liver cancer) Comment:: hep c - Hx Genitourinary Disorders: No - ENDOCRINE Hx Endocrine Disorders: Yes Hx Diabetes: Yes - MUSCULOSKELETAL Hx Musculoskeletal Disorders: Yes Hx Arthritis: Yes Hx Back Injury: Yes - PSYCH Hx Psych Problems: No - HEMATOLOGY/ONCOLOGY Hx Hematology/Oncology Disorders: Yes Hx Cancer: Yes Hx Chemotherapy: Yes Family Medical History Any Significant Family History?: No Physical Exam - General General Appearance: Alert, Oriented x3, Cooperative, Mild distress - Head Head exam: Normal inspection - Eye Eye exam: Normal appearance, PERRL, EOMI Pupils: Normal accommodation - ENT ENT exam: Normal exam, Mucous membranes dry, Normal external ear exam, Normal orophraynx Ear exam: Normal external inspection. negative: External canal tenderness Nasal Exam: Normal inspection. negative: Discharge, Sinus tenderness Mouth exam: Normal external inspection, Tongue normal Teeth exam: Normal inspection. negative: Dental caries Throat exam: Normal inspection. negative: Tonsillar erythema, Tonsillar exudate - Neck Neck exam: Normal inspection, Full ROM. negative: Tenderness - Respiratory Respiratory exam: Normal lung sounds bilaterally. negative: Respiratory distress - Cardiovascular Cardiovascular Exam: Regular rate, Normal rhythm, Normal heart sounds - GI/Abdominal GI/Abdominal exam: Soft, Normal bowel sounds, Tenderness - Rectal Rectal exam: Deferred - exam: Deferred - Extremities Extremities exam: Normal inspection, Full ROM, Normal capillary refill. negative: Tenderness - Back Back exam: Reports: Normal inspection, Full ROM. Denies: Muscle spasm, Rash noted, Tenderness - Neurological Neurological exam: Alert, CN II-XII intact, Normal gait, Oriented X3 - Psychiatric Psychiatric exam: Normal affect, Normal mood - Skin Skin exam: Dry, Intact, Normal color, Warm Course Vital Signs 06/17/19 17:35 Temperature 97.7 F Pulse Rate 99 H Respiratory 20 Rate Blood Pressure 132/93 Pulse Ox 100 - Reevaluation(s) Reevaluation #1: 06/17/19 19:07 pt feels better. no further vomiting. pt recently started tramadol and could be the etiology of the vomiting Medical Decision Making - Lab Data Result diagrams: 06/17/19 17:40 06/17/19 17:40 Disposition Disposition: Discharge Clinical Impression: Vomiting Qualifiers: Vomiting type: unspecified Vomiting Intractability: intractable Nausea presence: with nausea Qualified Code(s): R11.2 - Nausea with vomiting, unspecified Diabetes Qualifiers: Diabetes mellitus type: type 2 Diabetes mellitus usp insulin use: with long term care administrator use Diabetes mellitus complication status: with other specified complication Qualified Code(s): E11.69 - Type 2 diabetes mellitus with other specified complication; Z79.4 - long term care administrator (current) use of insulin Disposition: Home, Self-Care Condition: (1) Good Instructions: Acute Nausea and Vomiting (ED) Additional Instructions: follow up with family doctor. return sooner if worse. clear liquids only tonight Prescriptions: Promethazine HCl [Phenergan] 12.5 mg PO Q8HR #10 tablet Forms: Patient Portal Access Quality - Quality Measures Quality Measures: N/A - Blood Pressure Screening Does Patient Have Any of the Following: No Blood Pressure Classification: Hypertensive Reading Systolic Measurement: 132 Diastolic Measurement: 93 Screening for High Blood Pressure: < Pre-Hypertensive BP, F/U Documented > [G8950] Pre-Hypertensive Follow-up Interventions: Follow-up with rescreen every year.
[2019-06-17 18:20] LABS: ABSOLUTE NEUTROPHIL COUNT 5.63; BASO % 0.3 % (0-6); EOS % 0.6 % (0-6); GRAN % 78.4 % (47-80); HEMATOCRIT 42.4 % (42.0-52.0); LYMPH % 14.1 % (16-45); MEAN CELL VOLUME 80.3 fl (81-97); MEAN PLATELET VOLUME 11.8 fl (7.4-10.4); MONO % 6.6 % (0-9); PLATELET COUNT 190 K/uL (130-400); RED BLOOD COUNT 5.28 M/uL (4.40-5.70); RED CELL DISTRIBUTION WIDTH 12.8 % (11.5-14.5); WHITE BLOOD COUNT W/O DIFF 7.2 K/uL (4.2-12.2)
[2019-06-17 18:24] LABS: BILIRUBIN,TOTAL 1.1 mg/dL (0.2-1.0)
[2019-06-17 18:25] LABS: TOTAL PROTEIN 7.7 g/dL (6.6-8.7)
[2019-06-17 18:29] LABS: BILIRUBIN,DIRECT 0.2 mg/dL (0-0.3)
[2019-06-17 18:30] LABS: ALBUMIN 4.5 g/dL (4.0-5.0)
[2019-06-17 18:32] LABS: HEMOGLOBIN 16.5 gm/dl (14.0-18.0)
[2019-06-17 18:33] LABS: MEAN CORPUSCULAR HEMOGLOBIN 30.2 pg (27-33); MEAN CORPUSCULAR HGB CONC 36.6 g/dl (32-36)
[2019-06-17 18:34] LABS: ACETONE,SERUM NEGATIVE (NEGATIVE)
[2019-06-17 18:46] LABS: BLOOD UREA NITROGEN 15 mg/dL (6-20)
[2019-06-17 18:47] LABS: CREATININE 0.6 mg/dL (0.7-1.2); EST GLOMERULAR FILTRATION RATE > 60 mL/min
[2019-06-17 18:49] LABS: URINE APPEARANCE CLEAR; URINE BILIRUBIN SMALL (NEGATIVE); URINE BLOOD NEGATIVE (NEGATIVE); URINE COLOR YELLOW; URINE GLUCOSE (UA) NEGATIVE (NEGATIVE); URINE KETONE 40 mg/dL (NEGATIVE); URINE LEUKOCYTE ESTERASE NEGATIVE (NEGATIVE); URINE NITRITE NEGATIVE (NEGATIVE); URINE PROTEIN NEGATIVE (NEGATIVE)
[2019-06-17 18:49] LABS: GLUCOSE,RANDOM 180 mg/dL (74-109)
[2019-06-17] MEDS ORDERED: PROMETHAZINE HCL 12.5 MG in 0.9 % SODIUM CHLORIDE 100ML 100 ML IVPB ONE (18:59)
== END 2019-06-17 19:48 | disposition home or self-care (01) ==
LOC: ER 17:29
DX: R11.2 Nausea with vomiting, unspecified (principal); E11.69 Type 2 diabetes mellitus with other specified complication; Z79.4 Long term (current) use of insulin; I10 Essential (primary) hypertension
CPT/HCPCS: 99284 ×2; 96374; 96375; 82800; 83690; 85025; 80076; 80048; 82009; 81003; 83880; J2405; J2550; J7030